=== PATIENT | female | born 1990 | race Caucasian/White ===

== ENCOUNTER → 2020-06-21 06:00 | Outpatient (CLI) | payer BC, MEDICAID, SELFPAY ==
[2020-06-02 15:10] VITALS: BMI 44.9
[2020-06-21 08:08] LABS: Cholesterol 121 mg/dL (200); Glucose 87 mg/dL (74-106); High Density Lipoprotein 49 mg/dL; Thyroid Stim Hormone (TSH) 2.91 uIU/mL (0.358-3.74); Triglycerides 95 mg/dL; Very Low Density Lipoprotein 19 mg/dL (5-40)
== END ==
PROVIDERS: PCP Nurse Practitioner Family; Referring Provider Obstetrics & Gynecology; Visit Provider Obstetrics & Gynecology
DX: E28.2 Polycystic ovarian syndrome (principal)
CPT/HCPCS: 36415; 80061; 82947; 84443

== ENCOUNTER → 2020-06-24 13:07 | Outpatient (CLI) | payer BC, MEDICAID, SELFPAY ==
[2020-06-02 15:10] VITALS: BMI 44.9
[2020-06-24 14:46] LABS: Progesterone Level 5.45 ng/mL (See Comment)
== END ==
PROVIDERS: PCP Nurse Practitioner Family; Referring Provider Obstetrics & Gynecology; Visit Provider Obstetrics & Gynecology
DX: E28.2 Polycystic ovarian syndrome (principal)
CPT/HCPCS: 36415; 84144